=== PATIENT | female | born 1940 | race Two or more races ===

== ENCOUNTER 2020-07-01 11:45 | Inpatient (IN) | payer OTHER ==
[~2020-07-01] VITALS: Ht 154.9 cm; Wt 46.3 kg
[~2020-07-01 11:45] MED LIST: BONIVA150 MG PO; CIPRO500 MG PO; FLAGYL500MG PO; LIBRAX PO; Levsin/Sl 0.125 MG TAB.SUBL SL; MAGNESIUM400 MG PO; PROBIOTIC1 EAC2 PO; Protonix PO; SIMVASTA PO; SUPER B-50 COM1 EACH PO; ULTRACET PO; VITAMIN C PO; VITAMIN D3 PO; ZINC GLUCONATE100 MG PO
[2020-07-08] MEDS ORDERED: VITAMIN C500 M1 (08:20)
[2020-07-08] MEDS ORDERED: SIMVASTATIN20 MG (08:20)
[2020-07-08] MEDS ORDERED: VITAMIN B-121000 MC2 (08:20)
[2020-07-08] MEDS ORDERED: VITAMIN D310 MC1 (08:21)
[2020-07-11] MEDS ORDERED: PRILOSEC OTC20 MG PO (15:19)
[2020-07-11] MEDS ORDERED: PERCOCET 5-3251 EACH PO (15:19)
== END 2020-07-11 17:05 | disposition home or self-care (01) | DRG 331 ==
LOC: SURH 07-08 07:00 → SURG 07-08 07:08 → O/R 07-08 07:08 → SURH 07-08 11:45 → SURG 07-08 21:05
PROVIDERS: ADMIT Surgery; ATTEND Surgery
PROC: 0DTP4ZZ Resection of Rectum, Percutaneous Endoscopic Approach (ICD-10-PCS; 2020-07-08)
PROC: 0DJD8ZZ Inspection of Lower Intestinal Tract, Via Natural or Artificial Opening Endoscopic (ICD-10-PCS; 2020-07-08)
PROC: 0DBN4ZZ Excision of Sigmoid Colon, Percutaneous Endoscopic Approach (ICD-10-PCS; principal; 2020-07-08 07:00)
DX: K57.32 Diverticulitis of large intestine without perforation or abscess without bleeding (principal); N81.6 Rectocele